=== PATIENT | male | born 1940 | race Caucasian/White ===

== ENCOUNTER 2017-03-08 10:58 | Emergency (ER) | payer MEDICARE, OTHER ==
[~2017-03-08] VITALS: Ht 170.2 cm; Wt 105.5 kg
[~2017-03-08 10:58] MED LIST: ASPI325T32 PO; DILT180C9 PO; HYDR50TA3 PO; LIP40 PO; METF10002 PO; METF500T4 PO; MULT-1073 PO; NC8176 PO
--- NOTE | 2017-03-08 11:01 | ED.REPORT ---
HPI-Chest Pain 40 and Over Date of Service Mar 08, 2017 ED Provider: Eric Cohen Patient is a 76 year old male with a hx of CAD, HTN, DM, and afib on Eliquis who presents to the ED complaining of SOB onset this morning upon waking. Associated symptoms include a full body rash onset 4 days ago s/p having a stress test 5 days ago. He denies chest pain, nausea, vomiting, diaphoresis, or any other symptoms. He used his nebulizer with minimal relief. He was started on tamsulosin recently for a kidney stone. He had the stress test to determine of he could go off his Eliquis for the removal of the kidney stone. Nursing Notes Stated Complaint: GENERAL Nursing Notes Reviewed: Yes Allergies: Coded Allergies: Penicillins (Verified Allergy, Severe, 01/11/15) Scheduled Aspirin (Aspirin) 325 Mg Tablet.dr 325 MG PO DAILY Atorvastatin (Lipitor) 40 Mg Tablet 40 MG PO HS Benazepril (Benazepril) 10 Mg Tab 10 MG PO HS Diltiazem ER (Diltiazem ER) 180 Mg Cap.er.deg 180 MG PO HS Hydrochlorothiazide (Hydrochlorothiazide) 50 Mg Tablet 50 MG PO DAILY Levofloxacin (Levaquin) 750 Mg Tablet 750 MG PO DAILY Metformin (Metformin) 1,000 Mg Tablet 0 PO BID Metformin (Metformin) 500 Mg Tablet 500 MG PO BIDWM Multivits-Min/FA/Lycopene/Lut (Centrum Silver Tablet) 1 Each Tablet 1 EACH PO DAILY Prednisone (PredniSONE) 20 Mg Tablet 40 MG PO DAILY General Time Seen by MD: 11:01 Chief Complaint Shortness of breath Hx Obtained From: Patient, Other family... Arrived By: Walk-in Sudden in Onset?: Yes Onset Occurred: 1 - 4 hours ago Symptom Duration: Since onset Recent Healthcare: Recent doctor visit Risk Factors )( CAD Risk Stratification Diabetes mellitus Hypertension Known CAD Smoking Risk factors N/A Past Medical History Past Medical History Afib Reports: Coronary artery disease, Diabetes mellitus, Hypertension Past Surgical History None reported Smoking History Current Every Day Smoker Social History Alcohol Use: Denies alcohol use Drug Use: Denies drug use Other Social History: Good social support, Ambulatory Status Independent Review of Systems Respiratory: Reports: Shortness of breath Cardiovascular: Denies: Chest pain GI: Denies: Nausea, Vomiting Skin: Reports Rash, Denies Diaphoresis Complete sys rev & neg: except as marked. Physical Exam Initial Vital Signs Vital Signs (First) Date Time Temp Pulse Resp B/P Pulse Ox O2 Delivery O2 Flow Rate FiO2 03/08/17 11:04 37.3 158 20 136/100 93 Room Air 03/08/17 11:56 2 Initial VS: Reviewed, Vital signs abnormal Head / Eyes: Atraumatic, Normocephalic Neck: Full range of motion Neurologic: Alert, Oriented, Nonfocal Psychiatric: Mood/affect normal, Behavior normal, Normal thought content General/Constitutional: Awake, Alert, No acute distress Respiratory / Chest: Breath sounds NL, Breath sounds = bilat, No respiratory distress Heart Rate / Rhythm: Positive: Irreg irregular rhythm, Tachycardia Abdomen: Atraumatic, Soft, Non-tender Skin: Warm, Dry Color / Condition: Positive: Rash present Rash / Lesion Notes: urticarial rash on arms and umbilicus Interpretation & Diagnostics Lab Results Interpretation Result Diagram: 03/08/17 1104 03/08/17 1104 Test 03/08/17 11:04 03/08/17 11:41 03/08/17 13:45 White Blood Count 19.5th/mm3 (3.8-10.1) Red Blood Count 4.71mil/mm3 (4.40-5.80) Hemoglobin 14.1g/dL (13.8-17.2) Hematocrit 42.9% (41.0-50.0) Mean Corpuscular Volume 91.1fL (81-100) Mean Corpuscular Hemoglobin 29.9pg (27.0-35.0) Mean Corpuscular Hemoglobin Concent 32.9% (32.0-37.0) Red Cell Distribution Width 14.2% (12.3-15.4) Platelet Count 319bil/L (150-400) Neutrophils (%) (Auto) 84.3% (40-74) Lymphocytes (%) (Auto) 5.2% (14-46) Monocytes (%) (Auto) 8.2% (4-12) Eosinophils (%) (Auto) 1.8% (0-5) Basophils (%) (Auto) 0.1% (0-3) Sodium Level 137mEq/L (134-144) Potassium Level 3.7mEq/L (3.5-5.2) Chloride Level 92mEq/L (97-108) Carbon Dioxide Level 25mmol/L (18-29) Blood Urea Nitrogen 19mg/dL (8-27) Creatinine 0.92mg/dL (0.76-1.27) Estimat Glomerular Filtration Rate 85mL/min (>59) Glucose Level 173mg/dL (60-99) Calcium Level 9.2mg/dL (8.5-10.1) Magnesium Level 1.4mg/dL (1.6-2.6) Total Bilirubin 1.1mg/dL (0.0-1.2) Aspartate Amino Transf (AST/SGOT) 11U/L (0-50) Alanine Aminotransferase (ALT/SGPT) 10U/L (0-44) Alkaline Phosphatase 139U/L (25-160) Troponin T 0.010ug/L (0.0-0.011) Total Protein 7.2g/dL (6.4-8.4) Albumin 4.0g/dL (3.4-5.0) Lactic Acid Level 1.6mmol/L (0.4-2.0) ECG Interpretation ECG Interpretation: afib with rvr non-specific diffuse ST changes Time: 11:37 Interpreted by: ED physician X-Ray Chest Interpretation Chest Xray Interpretation: IMPRESSION: Patchy airspace opacity in the right lung base suspicious for pneumonia versus aspiration. Dictated by: Katherin Sullivan MD, PhD on 03/08/2017 at 11:55 Approved by: Katherin Sullivan MD, PhD on 03/08/2017 at 11:55 View: Portable, 1 view Interpretation / Wet Read by: Interpret - Radiologist Re-Eval/Medical Decision Med Decision/Clinical Course Findings of pneumonia with technical findings of sepsis in terms of hypoxia, leukocytosis and tachycardia. Heart rate was controlled with IV and oral Cardizem. He has a severe penicillin allergy and for this reason the Levaquin is given. Risks including but not limited to tendon rupture were discussed. The patient's daughters are at the bedside and the patient adamantly refuses admission under any circumstances. His daughters corroborate this. He is discharged on Levaquin, short course of prednisone, a prescription for home oxygen, he is recommended to follow closely with his primary care doctor or return to the ER as needed if worse. Time of Eval: 12:49 Re-Evaluation/Progress Note: Rechecked patient. He was put on nitrofurantoin about 2 weeks ago for a bladder infection. Discussed lab and imaging results. Discussed plan for admit and for urine sample. Pt does not want to be admitted. Time of Eval: 13:19 Re-Evaluation/Progress Note: Rechecked patient. Discussed plan for discharge. Patient understands and agrees with plan. All questions addressed at this time. Counseled Regarding: Diagnosis, Lab results, Need for follow-up, When/why to return to ED Discharge & Departure Primary Impression: Pneumonia Pneumonia type: due to unspecified organism Laterality: unspecified laterality Lung location: unspecified part of lung Qualified Code: J18.9 - Pneumonia, unspecified organism Additional Impressions: Hypoxia Atrial fibrillation with RVR Disposition: Home Discharge Condition All VS Reviewed: Yes Condition: Stable Patient Instructions: Pneumonia (ED) Additional Instructions: Take Levaquin and prednisone as prescribed. Continue your inhalers. Use oxygen as needed. Call your regular doctor in the morning for close follow-up. Return to the ER as needed if worse. Referrals: NOPCP (PCP) Crit Care Except Billable Proc Time Spent: 30-74 minutes Services Performed: Patient management by me, Time spent at bedside, Reviewing test results Critical Care Notes: See MDM Scribe Attestation Portions of this note were transcribed by Ree Peralta. I, Dr. Cohen personally performed the history, physical exam and medical decision-making; I reviewed and confirmed the accuracy of the information in the transcribed note. Signed by: Houston Lazaro, 03/08/17 Eric Cohen DO Mar 08, 2017 11:01 REE PERALTA Mar 08, 2017 11:11
[2017-03-08 11:04] VITALS: BP 136/100; PULSE 158; RESP 20; O2SAT 93
[2017-03-08] MEDS ORDERED: Diltiazem 5 mg/mL 5 mL Inj IVPUSH ONE ×2 (11:10→12:15)
[2017-03-08] MEDS ORDERED: Diltiazem CD 180 mg ER24 Capsule PO ONE (11:10)
[2017-03-08] MEDS ORDERED: MethylprednisoLONE Sodium Succinate 62.5 mg/mL 2 mL Inj IVPUSH ONE (11:15)
[2017-03-08 11:16] LABS: BASOPHILS % (AUTO) 0.1 % (0-3); EOSINOPHILS % (AUTO) 1.8 % (0-5); MONOCYTES % (AUTO) 8.2 % (4-12); Mean Corpuscular Hemoglobin 29.9 pg (27.0-35.0); Mean Corpuscular Volume 91.1 fL (81-100); NEUTROPHILS % (AUTO) 84.3 % (40-74); Platelet Count 319 bil/L (150-400)
[2017-03-08 11:36] LABS: TROPONIN T 0.01 ug/L (0.0-0.011)
[2017-03-08 11:47] LABS: Magnesium 1.4 mg/dL (1.6-2.6)
[2017-03-08] MEDS ORDERED: Magnesium Sulf 2 Gm/50mL Water 2 GM in IV Premix 1 EACH IV ONE (11:55)
[2017-03-08 11:56] VITALS: BP 131/73; PULSE 138; RESP 32; O2SAT 94
--- NOTE | 2017-03-08 11:57 | DRSVH ---
PROCEDURE: X-RAY CHEST ONE VIEW, PORTABLE ([id number]) INDICATIONS: Chest pain. TECHNIQUE: One view of the chest was acquired. COMPARISON: [facility], GRETCHEN, XR CHEST 2VW, 04/27/2015, 10:59. [facility], GRETCHEN, CHEST 2V W, 03/23/2016, 10:39 AM. FINDINGS: Surgical changes and devices: None. Lungs and pleura: No pleural effusions or pneumothorax. Patchy air space opacity noted in the right lung base suspicious for pneumonia versus aspiration. Mediastinum: Mediastinal contours appear normal. Heart size is normal. Bones and chest wall: No suspicious bony lesions. Overlying soft tissues appear unremarkable. IMPRESSION: Patchy airspace opacity in the right lung base suspicious for pneumonia versus aspiration . Dictated by: Katherin Sullivan MD, PhD on 03/08/2017 at 11:55 Approved by: Katherin Sullivan MD, PhD on 03/08/2017 at 11:55
[2017-03-08 12:23] VITALS: BP 114/79; PULSE 110; RESP 37; O2SAT 92
[2017-03-08] MEDS ORDERED: levoFLOXacin Inj 750 MG in IV Premix 1 EACH IV ONE (13:20)
[2017-03-08] MEDS ORDERED: levoFLOXacin 750 mg Tablet PO ONE (13:25)
[2017-03-08] MEDS ORDERED: LEVO750T9 PO (13:36)
[2017-03-08] MEDS ORDERED: PRE20 PO (13:36)
[2017-03-08 14:03] VITALS: BP 136/97; PULSE 117; RESP 26; O2SAT 92
== END 2017-03-08 14:05 | disposition home or self-care (01) ==
LOC: SED 10:58
DX: J18.9 Pneumonia, unspecified organism (principal); R09.02 Hypoxemia; I48.91 Unspecified atrial fibrillation; I25.10 Atherosclerotic heart disease of native coronary artery without angina pectoris; I10 Essential (primary) hypertension; E11.9 Type 2 diabetes mellitus without complications; F17.200 Nicotine dependence, unspecified, uncomplicated; L50.9 Urticaria, unspecified; Z87.442 Personal history of urinary calculi; Z79.4 Long term (current) use of insulin; Z79.84 Long term (current) use of oral hypoglycemic drugs; Z79.52 Long term (current) use of systemic steroids; Z88.0 Allergy status to penicillin
CPT/HCPCS: 36415; 71010; 80053; 83605; 83735; 84484; 85025; 87040; 93005; 96365; 96375; 99291; J2930

== ENCOUNTER → 2017-04-22 | Day surgery (SDC) | payer MEDICARE, OTHER ==
--- NOTE | 2017-04-19 10:29 | PCM.ANEPRE ---
Anesthesia Pre-Op Review Reason for Review: recent pneumonia, UC visits for tachycardia Anesthesia Recommendations: Proceed with Procedure Yony Larose MD Apr 19, 2017 10:28
[~2017-04-22] VITALS: Ht 172.7 cm; Wt 108.6 kg
[2017-04-22] VITALS (10 sets, daily range): BP systolic 116–146; BP diastolic 66–95; PULSE 82–101; RESP 13–20; O2SAT 92–98
[~2017-04-22] MED LIST changes: +ALBU2.5V4 INHALATION; +ALPR1TAB7 PO; +APIX5TAB PO; -ASPI325T32 PO; +Acetaminophen IV 1,000 mg IV ONE; +BDS.4IN INH; +BUPR100T15 PO; +Belladonna Alk-Opium 60 mg Rectal Suppository RECTAL ONE; +CeFAZolin 2 Gm/50 mL D5W Duplex Bag IV ONE; +CeFAZolin 2 Gm/50 mL D5W IV Premix IV ONE; +DILT180C83 PO; -DILT180C9 PO; +Dexamethasone 4 mg/mL Inj IVPUSH PRN; +EPHEDrine Sulfate 50 mg/mL Inj IVPUSH PRN; +Furosemide 10 mg/mL 2 mL Inj IV ONE; +HYDROmorphone 1 mg/mL Inj IVPUSH PRN; +Iopamidol-300 50 mL Inj IV ONE; +Ketamine 10 mg/mL 20 mL Inj ONE; +Lactated Ringer's 1,000 ML IV SCH; +Lactated Ringer's 500 ML IV PRN; -METF10002 PO; -MULT-1073 PO; +MetoCLOpramide 5 mg/mL 2 mL Inj IVPUSH PRN; +Ondansetron 2 mg/mL 2 mL Inj IVPUSH PRN; +Ondansetron 2 mg/mL 2 mL Inj ONE; +Phenylephrine 10,000 mCg/mL Inj IVPUSH PRN; +Propofol 10,000 mCg/mL 20 mL Inj ONE; +QUET25TA PO; +SILD100T PO; +TAMS0.4C98 PO; +fentaNYL-PF 50 mCg/mL 2 mL Inj IVPUSH PRN; +fentaNYL-PF 50 mCg/mL 2 mL Inj ONE
--- NOTE | 2017-04-22 08:25 | PCM.HPANE ---
Patient Data Surgeon Admitting Provider: Attending Provider:Jake Leone MD Primary Care Physician:Juan Card MD Other Provider:Óscar Weiss Anesthesia Reason for Visit 8MM Left Ureteral Stone Ht/WT & BMI Height (Feet): 5 Height (Inches): 9 Weight (Kilograms): 108.86 Body Mass Index 35.00 Allergies Coded Allergies: Penicillins (Verified Allergy, Severe, 01/11/15) Past Anesthesia History Anesthesia History: Denies:: Abnormal Airway, Anesthesia Reactions, Difficult Intubation, Fam Anesthesia Reaction, Fam Malignant Hypertherm, Malignant Hyperthermia Diabetes History Hx Diabetes?: Yes (no found Hgb A1c) Type of Diabetes: Type II Glycemic Control: Oral Medication MRSA MRSA: No Medications Blood Thinner: Aspirin Hypertension Medication: Yes Home Meds Incl Beta Shravan: No Reported Medications Benazepril 10 Mg Triwuv54 Mg PO DAILY 04/16/17 Hydrochlorothiazide 50 Mg Ldlwpc90 Mg PO DAILY 30 Days Ref 0 04/16/17 Alprazolam 1 Mg Tablet1 Mg PO TID PRN For Anxiety Ref 0 04/16/17 Atorvastatin (Lipitor)40 Mg Nkahkf02 Mg PO DAILY Ref 0 04/16/17 Bupropion 100 Mg Bempsb726 Mg PO DAILY Ref 0 04/16/17 Budesonide (Pulmicort Flexhaler)60 Puff/Inh Inhaler1 Puff INH BID #1 INHALER Ref 0 04/16/17 Tamsulosin (Flomax)0.4 Mg Capsule0.4 Mg PO DAILY Ref 0 04/16/17 Metformin 500 Mg Jexblc323 Mg PO BID Ref 0 04/16/17 Albuterol Neb Soln 2.5 Mg/3 Ml Vial.neb2.5 Mg INHALATION Q4H PRN For Shortness of Breath Ref 0 04/16/17 Sildenafil Citrate (Viagra)100 Mg Pxthfg947 Mg PO UD PRN erectile dysfunction Ref 0 04/16/17 Diltiazem ER 180 Mg Cap.er.57s486 Mg PO DAILY Ref 0 04/16/17 Apixaban (Eliquis)5 Mg Tablet5 Mg PO DAILY 04/16/17 Discontinued Reported Medications Quetiapine Fumarate (Seroquel)25 Mg Gsyqzt32 Mg PO HS Ref 0 04/16/17 Multivits-Min/FA/Lycopene/Lut (Centrum Silver Tablet)1 Each Tablet1 Each PO DAILY 01/11/15 Metformin 500 Mg Amlxip130 Mg PO BIDWM 30 Days Ref 0 01/11/15 Aspirin 325 Mg Tablet.dr325 Mg PO DAILY #1 BOTTLE Ref 0 01/11/15 Atorvastatin (Lipitor)40 Mg Rgxgda64 Mg PO HS 30 Days Ref 0 01/11/15 Metformin 1,000 Mg Tablet PO BID 30 Days Ref 0 06/21/14 Diltiazem ER 180 Mg Cap.er.rjn890 Mg PO HS 30 Days Ref 0 06/21/14 Hydrochlorothiazide 50 Mg Tacpbs05 Mg PO DAILY 30 Days Ref 0 06/21/14 Benazepril 10 Mg Tab10 Mg PO HS 06/21/14 Discontinued Scripts Prednisone (PredniSONE)20 Mg Cmotez58 Mg PO DAILY #6 TABLET Ref 0 Prov:Eric Cohen DO 03/08/17 Levofloxacin (Levaquin)750 Mg Kzgvad613 Mg PO DAILY #9 TABLET Prov:Eric Cohen DO 03/08/17 History History of ENT Problems?: Yes HEENT History: Positive for:: Cataracts (right eye) Hearing Problem Denies:: Abnormal Airway Difficult Intubation Dysphagia Sinus Problem TMJ Denture Type: Full- Upper Full- Lower Teeth Condition: No Teeth Hx of Heart Problems?: Yes Cardiovascular History: Positive for:: Atrial Fibrillation Cardiac Surgery (1998 CARDIAC STENT) Chest Pain (1998) Hypertension Denies:: AICD Abdominal Aortic Aneurism Congestive Heart Failure Edema Heart Murmur Irregular Heartbeat Pacemaker Rheumatic Fever Thrombophlebitis Valvular Heart Disease Hx of Respiratory Problem?: Yes Respiratory History: Positive for:: Cough (CHRONIC) Pneumonia (hx of march 2017) Denies:: Asthma COPD Chest Surgery Dyspnea Hemoptysis Oxygen Administration Pulmonary Embolism Tuberculosis Use of C-PAP Machine Hx Neurologic Problems?: No Neurological History: Denies:: Alzheimer's Disease CVA Dementia Dizziness Headaches Multiple Sclerosis Parkinson's Disease Seizures Hx of GI Problems?: No Hx of Problems?: Yes Genitourinary History: Positive for:: Kidney Stones (left stone current admission problem) Denies:: HX of Hemodialysis Urinary Tract Infection HX of Peritoneal Dialysis: No Male Hx: Denies:: Prostate Problems (ENLARGED PROSTATE) Scrotal Mass Testicular Surgery Skin History: Positive for:: Pressure Ulcers (L #2 TOE WOUND) Denies:: History Skin Disorders? Hx Musculoskeletal Problems?: Yes Musculoskeletal History: Positive for:: Joint Replacement (R TOTAL KNEE ) Denies:: Back Injury Degenerative Joint Musculoskeletal Trauma Systemic Lupus Hx of Psycho/Social Problems?: No Psycho Social History: Positive for:: Hx Depression ( JUST IN SEPTEMBER 2014) Denies:: Anxiety Bipolar Disorder Suicide Attempt Hx Surgeries?: Yes (KNEE, BACK, EAR, CARDIAC STENT) Hx Any Other Health Problems?: Yes Other History: Denies:: Cancer Endocrine Disease Hospitalization Thyroid Disease History Blood Transfusions: Positive for:: Accept Blood Products? Denies:: Blood Transfusions Hx Diabetes: Yes (no found Hgb A1c) Hx Alcohol Use: NoHx Substance Use: No Smoking Status: Current Every Day Smoker Have You Smoked inLast 12 mo: Yes Stop/Bang S-Snoring: Do You Snore Loudly: No T-Tired: feel tired, fatigued: No O-Obsered: Observed not breath: No P-Blood Pressure: treated: Yes B- Body Mass Index > 35 kg/m2: Yes A- Age over 50: Yes N- Neck Large Circumference: Yes G- Gender Male: Yes ROSALINE Total Score: 5 ROSALINE Risk Assessment: High Risk, =/>3 Yes ROSALINE Category 4 OutPt Procedure: Yes Risk Assessment Category Category 1A: Patient has history of documented sleep apnea, and HAS NOT received any narcotic, sedative or anesthesia administration during this stay. Category 1B: Patient has history of documented sleep apnea, and HAS received any narcotic , sedative or anesthesia administration during this stay Category 2: Patient has SUSPECTED Obstructive Sleep Apnea, and HAS received any narcotic , sedative or anesthesia administration during this stay. Category 3: Patient has SUSPECTED Obstructive Sleep Apnea and HAS NOT received narcotic, sedative or anesthesia administration during this stay. Category 4: Outpatient in Procedural Areas with known sleep apnea or who screen positive for High Risk via the STOP/BANG questionnaire. Exam Exam General Appearance: Alert, Oriented X3, Cooperative, No Acute Distress HEENT/AIRWAY: MP 2 Lungs: Clear to Auscultation, Normal Air Movement Heart: Exam Unremarkable, Regular Rate/Rhythm, No Murmurs/Rubs/Gallops Plan Impression Patient chart reviewed, patient interviewed and anesthestic plan with risks, benefits, and alternatives discussed, and informed consent obtained. NPO per Anesth. Guidelines: Yes ASA Physical Status: ASA3 Severe Disease Anesthetic Plan: GA Bene/Risks/Altern/Consents: Yes HP Complete Prior to Induction: Yes Kd Wolfe MD Apr 22, 2017 08:25
[2017-04-22] MEDS: Lactated Ringer's 1,000 ML IV SCH ×2 (11:16→12:06)
[2017-04-22 15:45] LABS: APPEARANCE,URINE HAZY (CLEAR,HAZY); COLOR,URINE STRAW (YELLOW); OCCULT BLOOD,URINE LARGE (NEGATIVE); UROBILINOGEN,URINE NORMAL (NORMAL)
--- NOTE | 2017-04-22 15:58 | OP ---
[address] [address] OPERATIVE REPORT PATIENT: JEROME CARROLL : 1940 MR#: [id number] ADMIT: 04/22/2017 JOB ID: [id number] DATE OF SURGERY: 04/22/2017 SURGEON: Jake Leone M.D. PREOPERATIVE DIAGNOSIS(ES): 1. Obstructing 8 mm mid left ureteral calculus. 2. History of left renal colic. POSTOPERATIVE DIAGNOSIS(ES): 1. Obstructing 8 mm mid left ureteral calculus. 2. History of left renal colic. 3. Bulbar urethral stricture x2. 4. Multifocal papillary bladder cancer. PROCEDURES PERFORMED: 1. Cystoscopy and visual urethrotomy. 2. Cystoscopy left retrograde pyelogram. 3. Left extracorporeal shockwave lithotripsy (maximal power level 7.5 x 2500 shocks. ANESTHESIOLOGIST: Kd Wolfe M.D. ANESTHESIA: General. PROCEDURE SUMMARY: The patient was positioned in semi lithotomy and the lower abdomen, genitalia, and groin were prepped and draped in sterile fashion. A 22-Swiss panendoscope was then passed in the lower urinary tract with the findings as described above in the urethra. The scope was then removed. The 20-Swiss urethrotome was then prepared with cold knife, and under direct visualization, the two bulbar strictures measuring about 12 and 14-Swiss each were incised dorsally at 12 o'clock with excellent resultant treatment affect and minimal bleeding. The panendoscope was then reintroduced into lower urinary tract with the other findings as described above. A 0.35 Glidewire was selected. This was advanced through the scope and into the left collecting system under direct and fluoroscopic guidance with the findings as described above. Next, a 5-Swiss open Underwood catheter was advanced over the Glidewire under direct and fluoroscopic guidance with the proximal tip adjacent to the inferior aspect of the calculus. The bladder was then drained completely and all instrumentation was backloaded off the 5-Swiss Underwood catheter. The 5-Swiss Underwood catheter was attached to the glans penis temporarily with an OpSite dressing. The patient was repositioned in supine and the above-described stone was localized in the X, Y, and Z planes with the assistance of retrograde fluorography. The stone appeared to break up well throughout the treatment course and free flow of contrast from the left upper tract through the region was definitely improved. At 2500 shocks, treatment was halted. The genitalia were then prepped and draped in a sterile fashion. A 20-Swiss silicone catheter was then inserted. The balloon was inflated to 10 cc and was placed to gravity drainage for postoperative healing of the stricture treatment sights. The catheter was then affixed to the drainage bag. The patient was repositioned supine, awakened, transferred to the [facility], and transferred to recovery in stable condition.
--- NOTE | 2017-04-22 16:43 | DRSVH ---
PROCEDURE: X-RAY KUB ([id number]) INDICATIONS: LEFT KIDNEY STONE TECHNIQUE: One view of the abdomen acquired. COMPARISON: [facility], CT, CT ABD PELVIS W CON, 02/08/2017, 17:24. [facility], CR, XR KUB, 02/22/2017, 8:56. FINDINGS: Surgical changes and devices: None. Bowel: Bowel gas pattern is normal. Soft tissues: No suspicious abdominal calcifications. Visualized solid organ contours appear normal in size. Bones: No suspicious bony lesions. IMPRESSION: Proximal to mid left ureteral calculus seen on previous CT scan is not definitively ident ified on today's KUB. Dictated by: Bruno Henson RRA Interpreted: Mehreen Dhillon MD on 04/22/2017 at 9:45 Approved by: Mehreen Dhillon M.D. on 04/22/2017 at 16:41
--- NOTE | 2017-04-22 16:59 | PCM.ANEP1 ---
Post Anesthesia PACU Phase 1 Assessment Vital Signs Vital Signs Date Time Temp Pulse Resp B/P Pulse Ox O2 Delivery O2 Flow Rate FiO2 04/22/17 16:27 83 16 131/95 94 Room Air 04/22/17 15:19 36 16 116/73 Room Air 04/22/17 15:10 83 16 126/80 93 Nasal Cannula 3 04/22/17 14:50 96 14 146/66 97 Nasal Cannula 3 04/22/17 14:35 85 13 134/90 95 Nasal Cannula 3 04/22/17 14:20 96 16 128/66 92 Nasal Cannula 4 04/22/17 14:15 97 17 136/77 98 Simple Mask 10 04/22/17 14:11 101 16 124/92 97 Simple Mask 10 04/22/17 14:05 36.4 99 14 121/92 97 Simple Mask 10 04/22/17 10:53 36.2 82 20 127/69 96 Room Air Anesthetic Administered: GA Level of Alertness: Sleepy, easy to arouse AGUAYO's with Equal Strength: Yes Pain: No Nausea or Vomiting: No CV Function & Hydration Stable: Yes Airway Device: Oralpharangeal Airway Oxygen Delivery: Simple Mask Lungs: Clear to Auscultation, Normal Air Movement Dermatome Level: Full Sensation PACU Phase 2 Assessment Complications: No Follow up Care: No Patient Instructions Provided: N/A Kd Wolfe MD Apr 22, 2017 16:59
== END | disposition home or self-care (01) ==
LOC: SAS 09:24
PROVIDERS: ATTEND Specialist
DX: N20.1 Calculus of ureter (principal); N13.5 Crossing vessel and stricture of ureter without hydronephrosis; C67.9 Malignant neoplasm of bladder, unspecified; I48.0 Paroxysmal atrial fibrillation; E11.9 Type 2 diabetes mellitus without complications; Z87.891 Personal history of nicotine dependence; Z79.01 Long term (current) use of anticoagulants; Z79.84 Long term (current) use of oral hypoglycemic drugs
CPT/HCPCS: 50590; 74000; 81000; C2617; J0131; J0690; J1940; J2405; J2704; J3010; J7120